=== PATIENT | female | born 1955 | race Caucasian/White ===

== ENCOUNTER 2017-03-30 16:58 | Emergency (ER) | payer MEDICAID ==
[2017-03-30 21:17] VITALS: BP 167/82
== END 2017-03-30 21:17 | disposition home or self-care (01) ==
LOC: ED 16:58
DX: S22.31XA Fracture of one rib, right side, initial encounter for closed fracture (principal); M54.5 Low back pain; I10 Essential (primary) hypertension; E78.00 Pure hypercholesterolemia, unspecified; W19.XXXA Unspecified fall, initial encounter; Y93.89 Activity, other specified; Y92.89 Other specified places as the place of occurrence of the external cause; Y99.8 Other external cause status